=== PATIENT | male | born 1970 | race Two or more races ===

== ENCOUNTER 2024-06-26 12:01 | Emergency (ER) | payer OTHER ==
[~2024-06-26] VITALS: Ht 170.2 cm; Wt 113.6 kg
[2024-06-26 12:15] VITALS: BP 112/83
[2024-06-26] MEDS: ACETAMINOPHEN 325 MG TAB PO ONE (12:25)
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
[2024-06-26] MEDS: IOHEXOL 300 MG/ML 100ML BOTTLE IJ ONE ×2 (13:36→14:37)
--- NOTE | 2024-06-26 14:14 | DVH ---
CT HEAD WITHOUT CONTRAST INDICATION: [facility] EXAM DATE: 06/26/2024 01:28 PM COMPARISON: None RADIATION DOSE: CTDIvol: 53 mGy, DLP: 863 mGy*cm PROCEDURE: CT scans of the head were obtained from the vertex to the skull base. Sagittal and coronal reconstructions were provided. All CT scans at this medical facility are performed using dose modulation techniques as appropriate t o a performed exam including the following: Automated exposure control was utilized; adjustment of th e MA and/or KV according to patient size; and use of iterative reconstruction technique. FINDINGS: There is sulcal and ventricular prominence. The brain otherwise shows normal morphology a nd mckeon-white matter differentiation, without intracranial hemorrhage, extra-axial fluid collection, mass effect or acute large vessel infarct.The basal cisterns are patent. The skull and visible facial bones are intact. The paranasal sinuses, mastoid air cells and middle ear cavities are well-aerated. The soft tissues of the scalp are unremarkable. IMPRESSION: No acute intracranial abnormality.
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
[2024-06-26 16:15] VITALS: PULSE 76; RESP 16; O2SAT 100
== END 2024-06-26 16:20 ==
LOC: EDBD 12:01 → ER 12:01
DX: S22.42XA Multiple fractures of ribs, left side, initial encounter for closed fracture (principal); F10.129 Alcohol abuse with intoxication, unspecified; R51.9 Headache, unspecified; V89.2XXA Person injured in unspecified motor-vehicle accident, traffic, initial encounter; Y93.89 Activity, other specified; Y92.89 Other specified places as the place of occurrence of the external cause; Y99.8 Other external cause status
CPT/HCPCS: 70450; 71101; 71260; 72125; 73562; 74177; 99285; Q9967